=== PATIENT | female | born 1990 | race Caucasian/White ===

== ENCOUNTER 2019-10-01 21:46 | Emergency (ER) | payer OTHER, MEDICAID, SELFPAY ==
[2019-10-01 22:25] VITALS: BP 131/104; PULSE 82; RESP 20; TEMP 36.6; O2SAT 97
[2019-10-01 23:58] VITALS: BP 129/95; PULSE 84; RESP 18; O2SAT 98
--- NOTE | 2019-10-02 02:30 | ED.URI ---
HPI - URI/Sore Throat General Chief Complaint: Upper Respiratory Symptoms Stated Complaint: THINKS SINUS INFECTION Time Seen by Provider: 10/01/19 21:48 Source: patient Mode of arrival: Ambulatory Limitations: no limitations History of Present Illness HPI Narrative: 29-year-old female nonsmoker without significant medical history presents with a chief complaint of severe left frontal face pain with drainage of yellowish green purulence fluid from her left nostril for approximately 3 weeks. She has tried various [id number] medications including antihistamines, Mucinex, and decongestants without any relief. She denies any fever but has not had access to a thermometer. She denies other symptoms such as sore throat, cough nor chest pain, nausea or vomiting. MD Complaint: sinus pain Onset (ago): week(s) Duration: constant Severity: moderate Relieving factors: nothing Exacerbating factors: changing head position Description of mucous: yellow, green and purulent Able to tolerate fluids by mouth: Yes Treatments prior to arrival: none Related Data Previous Rx's Medication Instructions Recorded amoxicillin-pot clavulanate 1 tab PO BID #20 tab 10/01/19 [Augmentin] fluconazole 150 mg PO Q3D #2 tab 10/01/19 Review of Systems Constitutional Constitutional: Denies chills, Denies fatigue, Denies fever(s), Denies frequent falls, Denies lethargy and Denies weakness Eyes Eyes: Denies change in vision, Denies eye discharge, Denies irritation and Denies loss of vision ENT Ears, Nose, Mouth, and Throat: Denies change in voice, Denies dizziness, Denies neck pain, Reports sinus pain, Reports sinus pressure, Denies sore throat and Denies throat swelling Cardiovascular Cardiovascular: Denies chest pain, Denies irregular heart rhythm, Denies lightheadedness, Denies palpitations, Denies dyspnea, Denies dyspnea on exertion and Denies orthopnea Respiratory Respiratory: Denies cough, Denies dyspnea, Denies dyspnea on exertion and Denies wheezing Gastrointestinal Gastrointestinal: Denies abdominal pain, Denies change in bowel habits, Denies diarrhea, Denies nausea and Denies vomiting Genitourinary Genitourinary: Denies hematuria, Denies flank pain, Denies urinary incontinence and Denies urinary urgency Musculoskeletal Musculoskeletal: Denies back pain, Denies muscle weakness, Denies neck pain, Denies numbness and Denies tingling Integumentary/Breasts Skin/Breast: Denies pruritus, Denies erythema, Denies rash and Denies wounds Neurologic Neurologic: Denies behavioral changes, Denies confusion, Denies dizziness, Denies frequent falls, Denies loss of vision, Denies numbness, Denies tingling and Denies weakness Psychiatric Psychiatric: Denies anxiety, Denies behavioral changes, Denies confusion, Denies depression, Denies homicidal ideation and Denies suicidal ideation Endocrine Endocrine: Denies fatigue, Denies flushing and Denies palpitations Hematologic/Lymphatic Hematologic/Lymphatic: Denies easy bruising Allergic/Immunologic Allergic/Immunologic: Denies urticaria, Denies throat swelling and Denies wheezing Patient History Social History Smoking Status: Never smoker Smoking Status: Never smoker Substance Use Type: does not use Exam Narrative Exam Narrative: GEN: AOx3 and in mild distress EYES: Pupils are equal, round, and reactive to light and accommodation. Extraoccular muscles are intact bilaterally. There is no subconjunctival hemorrhage or exudate. ENT: TMs clear, normal landmarks. Tender to palpation over L maxillary sinus. No abnormal transillumination. No notable pharyngeal erythema or tonsillar swelling, erythema or exudate CHEST: Lungs are clear to auscultation bilaterally and free of wheezes, rales, or rhonchi. Heart rate is regular rhythm, there are no murmurs, clicks, rubs, or gallops. There is no chest wall tenderness. ABD: Abdomen is soft and nontender. There is no guarding or rebound. Bowel sounds are normal in all 4 quadrants. There is no mass or organomegaly. EXT: Full painless ROM of all extremities with no loss of sensation or strength. SKIN: Warm, pink, and dry. No erythema or rash Initial Vital Signs Initial Vital Signs: Vital Signs Temperature 97.9 F 10/01/19 22:25 Pulse Rate 82 10/01/19 22:25 Respiratory Rate 20 10/01/19 22:25 Blood Pressure 131/104 H 10/01/19 22:25 Pulse Oximetry 97 10/01/19 22:25 Course Course Course Narrative: given persistent if not worsening symptoms of L facial pain, drainage of purulent material from L nostril > 10 days patient placed on ABX for presumed bacterial sinusitis. Vital Signs Vital signs: Vital Signs - 8 hr 10/01/19 22:25 10/01/19 23:58 Temperature 97.9 F Pulse Rate 82 84 Respiratory Rate 20 18 Blood Pressure 131/104 H 129/95 H Pulse Oximetry 97 98 Discharge Plan Departure Patient Disposition: Home Clinical Impression: Sinusitis Qualifiers: Sinusitis location: maxillary Chronicity: acute Recurrence: non-recurrent Qualified Code(s): J01.00 - Acute maxillary sinusitis, unspecified Discharge Date/Time: 10/01/19 23:59 Instructions: DI for Sinusitis Activity Restrictions/Additional Instructions: *You have been diagnosed with [acute bacterial sinusitis] *What to do: *Take medications as directed: *Follow up with your primary care provider in 2-3 days, call for an appointment. Let them know you were seen in the Emergency Department and that we ask that you be seen in follow up *Return to ER if you should have any new, worsening or concerning symptoms Prescriptions: New amoxicillin-pot clavulanate [Augmentin] 875-125 mg tablet 1 tab PO BID Qty: 20 RF: 0 fluconazole 150 mg tablet 150 mg PO Q3D Qty: 2 RF: 0 Referrals: [facility] [Outside]
== END 2019-10-01 23:59 | disposition home or self-care (01) ==
PROVIDERS: Emergency Provider Emergency Medicine
DX: J01.00 Acute maxillary sinusitis, unspecified (principal)
CPT/HCPCS: 99281; 99283

== ENCOUNTER 2023-10-02 14:18 | Emergency (ER) | payer OTHER, SELFPAY ==
[2023-10-02 14:23] VITALS: BP 137/80; PULSE 94; RESP 17; TEMP 36.9; O2SAT 97
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
[2023-10-02] MEDS: HYDROCODONE/ACET 5/325 TABLET 1 TAB PO (14:53)
[2023-10-02] MEDS: methocarbamoL 500 MG TABLET 750 MG PO (14:54)
[2023-10-02 15:08] LABS: Appearance Urine UA CLEAR; Bilirubin Urine UA NEGATIVE (NEGATIVE); Color Urine UA YELLOW; Glucose Urine UA NEGATIVE (Negative); Ketones Urine UA NEGATIVE (NEGATIVE); Leukocyte Esterase Urine UA NEGATIVE (NEGATIVE); Nitrite Urine UA NEGATIVE (Negative); Occult Blood Urine UA NEGATIVE (Negative); Protein Urine UA NEGATIVE (Negative); Specific Gravity Urine UA 1.015 (1.000-1.035); Urobilinogen Urine UA 0.2 E.U./dL (0.2)
[2023-10-02 15:11] LABS: pH Urine UA 5.5 (4.5-8.0)
[2023-10-02 15:24] LABS: Bacteria Urine Occasional (0-1); RBC Urine None Seen (0-5/HPF); Squamous Epithelial Cell Urine 1-5 /HPF (0-5/HPF); WBC Urine 0-1/HPF (0-5/HPF)
[2023-10-02 15:25] LABS: Culture Indicated Urine Cult Not Indicated
[2023-10-02 15:50] VITALS: BP 129/73; PULSE 89; RESP 16; O2SAT 97
[2023-10-02 16:30] VITALS: BP 120/78; PULSE 87; RESP 16; O2SAT 97
== END 2023-10-02 16:43 | disposition home or self-care (01) ==
PROVIDERS: Emergency Provider Emergency Medicine; PCP Nurse Practitioner Adult Health
DX: S16.1XXA Strain of muscle, fascia and tendon at neck level, initial encounter (principal); V89.2XXA Person injured in unspecified motor-vehicle accident, traffic, initial encounter
CPT/HCPCS: 71046; 72040; 81001; 81025; 99283